=== PATIENT | female | born 1955 | race Caucasian/White ===

== ENCOUNTER 2021-05-14 05:04 | Emergency (ER) | payer MEDICARE ==
--- NOTE | 2021-05-14 06:20 | EDM.PDOC ---
<Basim Watson - Last Filed: 05/14/21 06:13> ED HPI GENERAL MEDICAL PROBLEM - General Chief Complaint: Respiratory Problem Stated Complaint: MEDICAL VIA QUINCY Time Seen by Provider: 05/14/21 06:13 Source of Information: Reports: Patient, EMS, Old Records History Limitations: Reports: No Limitations - History of Present Illness INITIAL COMMENTS - FREE TEXT/NARRATIVE: Pratima is a 65 year-old female who presents to the ED via [facility] from [place], [place] for evaluation of increasing dyspnea following being diagnosed with COVID-19 2 days ago. She received the monoclonal antibody therapy here yesterday and called EMS because she was feeling more fatigue and shortness of breath this morning. She is unvaccinated for COVID and has been taking supplements to treat her illness. EMS reports that she had a SpO2 of 93% on room air. They also report that she did not want to be hospitalized. The patient is vitally stable with a SpO2 of 95% in the ED. - Related Data Allergies Allergy/AdvReac Type Severity Reaction Status Date / Time morphine Allergy Other Verified 05/14/21 06:26 Home Meds: Home Meds Acetaminophen [Tylenol Extra Strength] 500 mg PO ASDIRECTED PRN 05/13/21 [History] Ascorbic Acid/Ascorbate Sodium [Vitamin C 500 mg Tablet Chew] 1,000 mg PO DAILY 05/13/21 [History] Ashwagandha Root Extract 5 tab PO DAILY 05/13/21 [History] Cholecalciferol (Vitamin D3) [Vitamin D3] 1,000 unit PO DAILY 05/13/21 [History] Cyanocobalamin (Vitamin B-12) [Vitamin B-12] 1,000 mcg SL DAILY 05/13/21 [History] Resveratrol/Quercetin [Resveratrol Plus 100 MG] 2 cap PO DAILY 05/13/21 [History] Korean Black Radish 3 tab PO DAILY 05/13/21 [History] Zinc 50 mg PO DAILY 05/13/21 [History] Past Medical History - Infectious Disease History Infectious Disease History: Reports: Novel Coronavirus ED ROS GENERAL - Review of Systems Review Of Systems: See Below Constitutional: Reports: Fever, Chills, Malaise, Weakness, Decreased Appetite HEENT: Reports: Rhinitis Respiratory: Reports: Shortness of Breath, Cough, Sputum Cardiovascular: Reports: No Symptoms Endocrine: Reports: Fatigue GI/Abdominal: Reports: No Symptoms : Reports: No Symptoms Musculoskeletal: Reports: Leg Pain, Muscle Pain Skin: Reports: No Symptoms Neurological: Reports: Headache Psychiatric: Reports: Anxiety Hematologic/Lymphatic: Reports: No Symptoms ED EXAM, GENERAL - Physical Exam Exam: See Below Exam Limited By: No Limitations General Appearance: Alert, Anxious, Mild Distress Eye Exam: Bilateral Eye: EOMI, PERRL Nose: Nasal Swelling, Nasal Drainage, Clear Rhinorrhea Throat/Mouth: Normal Inspection, Normal Voice, No Airway Compromise, Other (Dry mucous membranes) Head: Atraumatic, Normocephalic Neck: Normal Inspection, Supple. No: Carotid Bruit, Lymphadenopathy (R) Respiratory/Chest: No Respiratory Distress, No Accessory Muscle Use, Decreased Breath Sounds (Bibasilar), Rhonchi (Scattered rhonchi bilaterally), Other (Mild tachypnea) Cardiovascular: Normal Peripheral Pulses, Regular Rate, Rhythm, No Murmur Peripheral Pulses: 2+: Radial (L), Radial (R) GI/Abdominal: Normal Bowel Sounds, Soft, Non-Tender Back Exam: Normal Inspection Extremities: Normal Inspection, Normal Range of Motion, No Pedal Edema, Normal Capillary Refill Neurological: Alert, Oriented, Normal Cognition, No Motor/Sensory Deficits Psychiatric: Anxious Skin Exam: Warm, Dry Lymphatic: No Adenopathy Course - Radiology Interpretation Free Text/Narrative:: I reviewed the one-view portable chest x-ray on Pratima showing bilateral basilar groundglass opacities in the lower third of the lungs consistent with Covid pneumonitis. No evidence for significant consolidation. Normal cardiac silhouette. Departure - Departure Disposition: Home, Self-Care 01 Clinical Impression: COVID-19 - Discharge Information Referrals: PCP,None [Primary Care Provider] - Forms: ED Department Discharge Additional Instructions: Make sure you are taking Vitamin D if not already, suggest [id number] Units per day. Consider taking Paxlovid per directions twice daily for 5 days. Stay in touch with your doctor about your condition. <Antonio Tineo - Last Filed: 05/14/21 07:35> Course - Vital Signs Last Recorded V/S: Last Vital Signs Temp 37.6 C 05/14/21 05:15 Pulse 94 05/14/21 05:15 Resp 22 H 05/14/21 05:15 BP 116/56 L 05/14/21 05:15 Pulse Ox 94 L 05/14/21 05:15 - Orders/Labs/Meds Orders: Active Orders 24 hr Category Date Time Status Chest 1V Frontal [CR] Stat Exams 05/14/21 05:55 Taken Labs: Laboratory Tests 05/14/21 05/14/21 05/14/21 Range/Units 06:22 06:22 06:22 WBC 7.4 (4.5-11.0) K/uL RBC 4.36 (3.30-5.50) M/uL Hgb 11.3 L (12.0-15.0) g/dL Hct 33.9 L (36.0-48.0) % MCV 78 L (80-98) fL MCH 26 L (27-31) pg MCHC 33 (32-36) % Plt Count 190 (150-400) K/uL Neut % (Auto) 86.1 H (36-66) % Lymph % (Auto) 8.8 L (24-44) % [place] % (Auto) 5.0 (2-6) % Eos % (Auto) 0.0 L (2-4) % Baso % (Auto) 0.1 (0-1) % D-Dimer, Quantitative 1448.49 H (0.0-500.0) ng/mL Sodium 138 L (140-148) mmol/L Potassium 3.5 L (3.6-5.2) mmol/L Chloride 103 (100-108) mmol/L Carbon Dioxide 26 (21-32) mmol/L Anion Gap 12.5 (5.0-14.0) mmol/L BUN 8 (7-18) mg/dL Creatinine 0.9 (0.6-1.0) mg/dL Est Cr Clr Drug Dosing 57.56 mL/min Estimated GFR (MDRD) > 60 (>60) Glucose 84 (74-106) mg/dL Lactic Acid (0.4-2.0) mmol/L Calcium 8.0 L (8.5-10.1) mg/dL Ferritin 95 (8-388) ng/ml Lactate Dehydrogenase 337 H (82-234) U/L C-Reactive Protein 7.71 H (0.0-0.3) mg/dL Procalcitonin ng/mL 05/14/21 05/14/21 Range/Units 06:22 06:22 WBC (4.5-11.0) K/uL RBC (3.30-5.50) M/uL Hgb (12.0-15.0) g/dL Hct (36.0-48.0) % MCV (80-98) fL MCH (27-31) pg MCHC (32-36) % Plt Count (150-400) K/uL Neut % (Auto) (36-66) % Lymph % (Auto) (24-44) % [place] % (Auto) (2-6) % Eos % (Auto) (2-4) % Baso % (Auto) (0-1) % D-Dimer, Quantitative (0.0-500.0) ng/mL Sodium (140-148) mmol/L Potassium (3.6-5.2) mmol/L Chloride (100-108) mmol/L Carbon Dioxide (21-32) mmol/L Anion Gap (5.0-14.0) mmol/L BUN (7-18) mg/dL Creatinine (0.6-1.0) mg/dL Est Cr Clr Drug Dosing mL/min Estimated GFR (MDRD) (>60) Glucose (74-106) mg/dL Lactic Acid 1.0 (0.4-2.0) mmol/L Calcium (8.5-10.1) mg/dL Ferritin (8-388) ng/ml Lactate Dehydrogenase (82-234) U/L C-Reactive Protein (0.0-0.3) mg/dL Procalcitonin 0.22 ng/mL Departure - Departure Time of Disposition: 07:30 Condition: Fair - Discharge Information *PRESCRIPTION DRUG MONITORING PROGRAM REVIEWED*: Not Applicable *COPY OF PRESCRIPTION DRUG MONITORING REPORT IN PATIENT SNEHAL: Not Applicable Sepsis Event Note (ED) - Focused Exam Vital Signs: Vital Signs Temp Pulse Resp BP Pulse Ox 05/14/21 05:15 37.6 C 94 22 H 116/56 L 94 L
--- NOTE | 2021-05-15 08:56 | CR ---
CHEST: Portable 05/14/2021 CLINICAL HISTORY:Covid positive, dyspnea COMPARISON:None FINDINGS: Heart size and pulmonary vascularity are normal. There are patchy bilateral predominantly lower lobe infiltrates. There are no pleural effusions. Impression: Patchy bilateral lower lobe pneumonic infiltrate
== END 2021-05-14 09:15 | disposition home or self-care (01) ==
LOC: JP.ED 05:04
DX: U07.1 COVID-19 (principal); Z88.5 Allergy status to narcotic agent
CPT/HCPCS: 36415; 71045; 71045-26; 80048; 82728; 83605; 83615; 84145; 85025; 85379; 86140; 99285-25